=== PATIENT | male | born 1980 ===

== ENCOUNTER 2025-02-11 12:39 | Outpatient (AMB) | payer MEDICAID, SELFPAY ==
--- NOTE | 2025-02-11 12:47 | A.OFFVIS_ITS ---
Vital Signs 02/11/25 12:49 Height 5 ft 9 in Weight 178 lb 2.136 oz BMI 26.3 BP 154/91 H Blood Pressure Location Lt brachial Position Sitting Pulse 81 Intake Visit Reasons: Hep. C New patient Intake Note: New patient in office today for hepatitis C. CC: Patient denies having any GI symptoms today. He has been on Epclusa for a month. 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 Seen with Janiya UGALDE for interpretation. Reports finding out chronic HCV almost 5 years ago in [facility] due to hx of IVDU. Also reports prev hx of etOH use. Currently no sx to include abd pain, N,V, D. No abd distention, pruritus, unintentional weight loss. Recently seen at [facility] and referred to get ultrasound here? Pt has already been started on Epclusa by PCP. [facility] Surgical History (Updated 02/11/25 @ 12:57 by SHELDON Ba) Hx of appendectomy Social History (Updated 02/11/25 @ 12:58 by SHELDON Ba) Alcohol intake: former Patient Tobacco Use Status: Current everyday Tobacco user e-Cigarette/Vaping Use: Currently Using Use of substances other than those prescribed or required for medical reasons: No Review of Systems Const All systems reviewed & are unremarkable except as noted in HPI and below Physical Exam Vital Signs: Last Vital Signs Pulse 81 02/11/25 12:49 BP 154/91 H 02/11/25 12:49 BMI result Body Mass Index 26.3 No apparent distress Nonicteric Abdomen soft, nondistended Alert and oriented x3, normal gait Assessment & Plan Assessment & Plan (1) Hepatitis C, chronic: Code(s): B18.2 - Chronic viral hepatitis C Category: Medical (2) Elevated liver enzymes: Code(s): R74.8 - Abnormal levels of other serum enzymes Category: Medical (3) Colon cancer screening: Code(s): Z12.11 - Encounter for screening for malignant neoplasm of colon Category: Medical Plan Chronic HCV genotype 1a - tx naiive. Plan: - Labs and US ordered - Pt comfortable following up with referring provider but knows to follows up if SVR 12 not achieved. CRC screening: average risk. To start at 46 y.o Follow up PRN Orders: Orders Alpha Fetoprotein Today B18.2 - Chronic viral hepatitis C, R74.8 - Abnormal levels of other serum enzymes C Reactive Protein Today B18.2 - Chronic viral hepatitis C, R74.8 - Abnormal levels of other serum enzymes IRON PROFILE Today B18.2 - Chronic viral hepatitis C, R74.8 - Abnormal levels of other serum enzymes Immunoglobulin G Today B18.2 - Chronic viral hepatitis C, R74.8 - Abnormal levels of other serum enzymes Mitochondrial Antibody Today B18.2 - Chronic viral hepatitis C, R74.8 - Abnormal levels of other serum enzymes Transglutaminase IgA Today B18.2 - Chronic viral hepatitis C, R74.8 - Abnormal levels of other serum enzymes TSH reflex Free T4 Today B18.2 - Chronic viral hepatitis C, R74.8 - Abnormal levels of other serum enzymes US abdomen complete Today B18.2 - Chronic viral hepatitis C, R74.8 - Abnormal levels of other serum enzymes Complete Blood Count no Diff Today B18.2 - Chronic viral hepatitis C, R74.8 - Abnormal levels of other serum enzymes Comprehensive Met. Panel Today B18.2 - Chronic viral hepatitis C, R74.8 - Abnormal levels of other serum enzymes Ferritin Today B18.2 - Chronic viral hepatitis C, R74.8 - Abnormal levels of other serum enzymes Alpha 1 Anti-trypsin Today B18.2 - Chronic viral hepatitis C, R74.8 - Abnormal levels of other serum enzymes MANDI Reflex Titer and Pattern Today B18.2 - Chronic viral hepatitis C, R74.8 - Abnormal levels of other serum enzymes Immunoglobulin A Today B18.2 - Chronic viral hepatitis C, R74.8 - Abnormal levels of other serum enzymes Lipid Panel Today B18.2 - Chronic viral hepatitis C, R74.8 - Abnormal levels of other serum enzymes Hemoglobin A1c Today B18.2 - Chronic viral hepatitis C, R74.8 - Abnormal levels of other serum enzymes Liver Kidney Microsomal Ab Today B18.2 - Chronic viral hepatitis C, R74.8 - Abnormal levels of other serum enzymes Prothrombin Time INR Today B18.2 - Chronic viral hepatitis C, R74.8 - Abnormal levels of other serum enzymes Smooth Muscle Antibody Today B18.2 - Chronic viral hepatitis C, R74.8 - Abnormal levels of other serum enzymes Coding Level of Care Code New Pt Level 4 (52162) Diagnoses Hepatitis C, chronic B18.2 Elevated liver enzymes R74.8 Colon cancer screening Z12.11
[2025-02-11 12:49] VITALS: BP 154/91; PULSE 81; BMI 26.3
--- OUTSIDE RECORDS SUMMARY | 2025-02-11 15:01 | XMS_ITS | Clinical Summary ---
Author Organization [facility] Address [address] [place] [address] Care Team Providers Care Portable Pinch Riveter Name Role Phone Simon Campuzano MD Primary Care Provider [phone] Source Comments PLEASE NOTE, if this patient is a minor, it may be UNLAWFUL to discuss sensitive information that is contained in these records (such as FAMILY PLANNING, MENTAL HEALTH or SUBSTANCE ABUSE) with the minor patient's parent or other person without the patient's specific authorization.[facility] Allergies No known active allergies Medications omeprazole (PRILOSEC) [address] capsuleIndicatio ns:Gastroesophag eal reflux disease, esophagitis presence not specified Take 1 Cap by mouth every morning before breakfast 30 Cap 2 9 Active methadone 10 mg/5 mL solutionIndicati ons:Opioid dependence in controlled environment (HCC-CMS) Take 35 mL by mouth once daily 0 9 Active butalbital-aceta minophen-caff (FIORICET) 50-325-40 mg per capsuleIndicatio ns:Tension headache Take 1 Cap by mouth 2 (two) times daily as needed for headaches 9 Active SUMAtriptan succinate (IMITREX) 25 mg tabletIndication s:Tension headache Take 1 Tab by mouth once as needed for migraine (take 1 tab at onset and if still have carr in 2 hours one more.) for up to 1 dose 10 Tab 1 9 Active topiramate (TOPAMAX) 25 mg tabletIndication s:Tension headache Take 1 Tab by mouth 2 (two) times daily 60 Tab 1 9 Active Active Problems Problem Noted Date Diagnosed Date Suspected COVID-19 virus infection 03/22/2020 Overview (03/22/2020): COVID-19 Tracking [reviewed or updated 03/22/2020] ? ? Exposure to confirmed case or travel risk - Yes, Dateunsure ? ? Date that symptoms began -03/17/20 ? ? Patient risk factors for severe COVID-19: Liver disease ? ? 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 ? COVID-19 Tested? - No ? ? Is patient ? No Immune to hepatitis B 06/13/2019 Overview (06/13/2019): [facility], 02/20/18, HBV surface antibody, Value: 309.89 Chronic tension-type headache, not intractable 0 06/12/2019 Cigarette smoker motivated to quit 06/12/2019 History of Helicobacter pylori infection 019 Overview (06/13/2019): [facility], H. Pylori antibody IgG ISR, 02/20/2018, Value: 1.76, Comment: 0.0 - 0.88 (Reference Range) Denotes a negative test for the presence of active H. Pylori infection. Associated Dx: GERD w/o esophagitis. - Received Tx 9 months ago, 08/2018. Hepatitis C antibody positive in blood 9 Overview (06/13/2019): - [facility], 02/21/18, HCV Antibody, Value: Positive, Comment: Presumptive evidence of antibodies to HCV, Associated Diagnoses: Transaminitis - Primary - [facility], 04/06/18, Hepatitis C Viral Load (PCR), HCV RNA PCR Value: [id number], Associated Dx: Hepatitis C virus infection without hepatic coma, unspecified chronicity, Genotype 1a GERD without esophagitis 06/12/2019 Overview (06/13/2019): Dx'ed at [facility], 02/20/18. Transaminitis 06/12/2019 Overview (06/13/2019): [facility], 02/20/18, Progress Notes from Beau Boucher MD: He brought work for previously obtained lab investigations from outside of the hospital in October 2017, that showed ALT and AST in the 100s. Denies any known history of hepatitis, abdominal pain or jaundice. Chronic bilateral low back pain without sciatica 06/12/2019 Overview (06/13/2019): [facility], 02/20/18, Beau Boucher MD, Encounter notes: H/o of chronic low back pain x 6 years, s/p injury at work lifting heavy objects; pain described in low back at paraspinal region, experiences equal pain on both side, pain does not radiate to BLE's; no numbness and paraesthesia or incontinence; Pain worse in the morning and after work at night; Had PT in the past with significant benefits. Immunizations Name Administration Dates Next Due Moderna COVID-19 Vaccine, re d cap blue label, 12+ Primary Series 11/24/2021,05/25/2021,04/27/2021 Social History Tobacco Use Types Packs/Day Years Used Date Smoking Tobacco: Every Day Cigarettes 0.5 18 Smokeless Tobacco: Never Tobacco Cessation:Ready to Q uit: Yes; Counseling Given: Yes Alcohol Use Standard Drinks/Week Comments Never 0 (1 standard drink = 0.6 oz pur e alcohol) Social Connections Answer Date Recorded Connectedness 0 08/07/2024 Financial Resource Strain Answer Date R ecorded Financial Resource Strain 0 2018 Stress Answer Date Recorded Stress 0 07/14/2019 Physical Activity Answer Date Recorded Physical Activity 0 07/14/2019 Food Insecurity Answer Date Recorded Food 0 08/21/2024 Transportation Needs Answer Date Record ed Transportation 0 07/14/2019 Housing Stability Answer Date Recorded Housing 0 07/14/2019 Safety and Environment Answer Date Johnny rded Safety 0 07/14/2019 Utilities Answer Date Recorded Utilities 0 07/14/2019 Employment Answer Date Recorded Stress 0 08/07/2024 Sex and Gender Information Value Date Recorded Sex Assigned at Male 06/12/2019 12:07 PM PDT Legal Sex Male 5:40 AM PDT Gender Identity Male 06/12/2019 12:07 PM PDT Sexual Orientation Straight 06/12/2019 12 :10 PM PDT Last Filed Vital Signs Vital Sign Reading Time Taken Comments Blood Pressure 98/72 06/12/2019 3:07 PM EDT Pulse 52 06/12/2019 3:07 PM EDT Temperature 36.8 ??C (98.2 ??F) 06/12/2019 3:07 PM ED T Respiratory Rate - - Oxygen Saturation 97% 06/12/2019 3:07 PM EDT Inhaled Oxygen Concentration - - Weight 78 kg (172 lb) 06/12/2019 3:07 PM EDT Height 177 cm (5' 9.69 ) 06/12/2019 3:07 PM EDT Body Mass Index 24.9 06/12/2019 3:07 PM EDT Plan of Treatment Health Maintenance Due Date Last Done Comments Tobacco Screening 1981 Imm-DTaP/Tdap/Td (1 - Tdap) 2000 Imm-Pneumococcal (1 of 2 - PCV) 2000 Hypertension Screening (#1) 06/11/2020 Tobacco Cessation Counseling (#1) 06/11/2020 Diabetes Screening 06/13/2022 06/13/2019, 06/13/2019 Lipid Screening 06/13/2024 06/13/2019 [id number] ( season) 2024 11/24/2021, 05/25/2021, 04/27/2021 Imm-Influenza (#1) 2024 Alcohol and Drug Screen 11/26/2024 06/01/2020, 06/12 Depression Annual Screen 11/26/2024 06/01/2020 HIV Screening Completed 06/13/2019 Hepatitis C Screening Completed 06/13/2019 Imm-Hepatitis B Discontinued Procedures Procedure Name Priority Date/Time Associated Diagnosis Comments ANTIBODY HIV-1&HIV-2 SINGLE RESULT Routine 06/13/2019 9:50 AM EDT Hepatitis C virus infection without hepatic coma, unspecified chronicity HEPATITIS A,B,C PANEL Routine 06/13/2019 9:50 AM EDT Hepatitis C virus infection without hepatic coma, unspecified chronicity HEMOGLOBIN GLYCOSYLATED A1C Routine 06/13/2019 9:50 AM EDT Laboratory tests ordered as part of a complete physical exam (CPE) LIPID PANEL Routine 06/13/2019 9:50 AM EDT Laboratory tests ordered as part of a complete physical exam (CPE) from Last 3 Months or Most Recently Relevant to Health Maintenance Results * (ABNORMAL) HEPATITIS A,B,C PANEL (06/13/2019 9:50 AM EDT) HEPATITIS B SURFACE ANTIBODY POSITIVE(A) NEGATIVE [facility] HEPATITIS B SURFACE ANTIGEN NEGATIVE NEGATIVE [facility] Comment: Over the counter supplements containing high doses of biotin may interfere with this assay. ??If interference is suspected, patients shoud be retested after refraining from biotin supplements for 72 hours. HEPATITIS C VIRUS DIAGNOSTIC POSITIVE(A) NEGATIVE [facility] Comment: If confirmation of this positive HCV Ab screening test is needed, please redraw and order HCV Viral Load. ??Note--> This test may not be added on due to different specimen requirements. HEPATITIS A ANTIBODY TOTAL NEGATIVE NEGATIVE [facility] Comment: Over the counter supplements containing high doses of biotin may interfere with this assay. ??If interference is suspected, patients shoud be retested after refraining from biotin supplements for 72 hours. HEPATITIS B CORE ANTIBODY POSITIVE(A) NEGATIVE [facility] Blood specimen (specimen) Blood / Unknown 06/13/2019 9:50 AM EDT 06/13/2019 9:56 AM EDT Narrative [facility] - 06/13/2019 2:23 PM EDT [employer] [address] Poultry Grader - Karen Thompson MD PT ID [id number] ORD# [id number] us Sandy Higginbotham [facility] - BLOOD DRAW Edite d Result - Final [address] [address], * HIV-1 & HIV-2 ANTIBODIES (06/13/2019 9:50 AM EDT) Pathologist [facility] HIV 1 AND 2 ANTIBODY SCREEN NEGATIVE NEGATIVE [facility] Comment: This assay is a 4th generation assay allowing for earlier detection of HIV infection by detecting the presence of the HIV-1 p24 antigen as well as the traditional antibodies to HIV type 1 (including group O) and type 2. ??Use of a 4th generation assay is the current CDC recommendation for HIV screening. Blood specimen (specimen) Blood / Unknown 06/13/2019 9:50 AM EDT 06/13/2019 9:56 AM EDT Narrative [facility] - 06/13/2019 2:52 PM EDT [employer], a member of [address] [address] Poultry Grader - Karen Thompson MD PT ID [id number] ORD# [id number] Sandy Higginbotham [facility] - BLOOD DRAW Final Result Performing Organization Address [facility] [place] [address], * HEMOGLOBIN, GLYCOSYLATED (A1C) (06/13/2019 9:50 AM EDT) GLYCATED HEMOGLOBIN A1C 5.4 <6.5 % [facility] ESTIMATED AVERAGE GLUCOSE 108 mg/dL [facility] Blood specimen (specimen) Blood / Unknown 06/13/2019 9:50 AM EDT 06/13/2019 9:56 AM EDT Narrative [facility] - 06/13/2019 3:04 PM EDT [employer], a member of [address] [address] Poultry Grader - Karen Thompson MD PT ID [id number] ORD# [id number] Sandy Higginbotham [facility] - BLOOD DRAW Final Result Performing Organization Address City/[facility] Co de Phone Number [address] [address], [place] [phone] * LIPID PANEL (06/13/2019 9:50 AM EDT) CHOLESTEROL 121 0 - 200 mg/dL [facility] TRIGLYCERIDES 53 0 - 150 mg/dL [facility] HDL CHOLESTEROL 40 >40 mg/dL [facility] LDL CALCULATED 71 0 - 100 mg/dL [facility] TC-HDLC RATIO 3.0 0 - 4.4 mg/dL [facility] Blood specimen (specimen) Blood / Unknown 06/13/2019 9:50 AM EDT 06/13/2019 9:56 AM EDT Narrative [facility] - 06/13/2019 2:06 PM EDT [employer] [address] Poultry Grader - Karen Thompson MD PT ID [id number] ORD# [id number] Sandy Higginbotham [facility] - BLOOD DRAW Edite d Result - Final [address] [address], from Last 3 Months or Most Recently Relevant to Health Maintenance Insurance [id number] Care Teams Portable Pinch Riveter Relationship Specialty Start Date End Date Simon Campuzano MD [address] [place] [address] PCP - General Internal Medicine 03/09/23
== END 2025-02-11 13:31 | disposition home or self-care (01) ==
LOC: HO.HGI 12:39
PROVIDERS: PCP Nurse Practitioner Family; Visit Provider Internal Medicine
DX: B18.2 Chronic viral hepatitis C (principal); R74.8 Abnormal levels of other serum enzymes
CPT/HCPCS: 99204

== ENCOUNTER → 2025-02-11 12:39 | Outpatient (BNVA) | payer MEDICAID, SELFPAY | PROVIDERS: PCP Nurse Practitioner Family; Visit Provider Internal Medicine | DX: Z12.11 Encounter for screening for malignant neoplasm of colon (principal); B18.2 Chronic viral hepatitis C; R74.8 Abnormal levels of other serum enzymes | CPT/HCPCS: 99202 ==